=== PATIENT | female | born 1955 | race Caucasian/White ===

== ENCOUNTER 2016-08-01 12:11 | Emergency (ER) | payer BC ==
[~2016-08-01] VITALS: Ht 172.7 cm; Wt 97.7 kg
[2016-08-01 12:15] VITALS: BP 160/86; PULSE 60; RESP 20; TEMP 97.3; O2SAT 96
--- NOTE | 2016-08-01 12:21 | PD ---
Physical Exam Date Seen by Provider: Aug 01, 2016 Time Seen by Provider: 12:17 Narrative 60Y/O female here for sudden onset bleeding from left medial ankle this morning while at [place] having breakfast. Patient has Hx swelling and Varicose veins to the area. No specific injury. No anticoagulants. No reports of pain. Hx of HTN for which she take Losarten and Amlodipine. Bleeding currently controlled with dressing. V/S Stable. Patient awaiting Bed placement. Data Data Last Documented VS Vital Signs Date Time Temp Pulse Resp B/P Pulse Ox O2 Delivery O2 Flow Rate FiO2 08/01/16 12:15 97.3 60 20 160/86 96 Room Air [facility] Medical Record Reviewed: Yes Supervised Visit with NILESH: Yes Condition: Stable Shahab Augustine Aug 01, 2016 12:21
[2016-08-01] MEDS ORDERED: SYNT112T PO (12:31)
[2016-08-01] MEDS ORDERED: AMLO5TAB2 PO (12:31)
[2016-08-01] MEDS ORDERED: LOSA50TA PO (12:31)
[2016-08-01] MEDS ORDERED: TETANUS/DIPHTHERIA TOXOID ADULT 0.5 ML VIAL IM ONE (12:45)
[2016-08-01] MEDS ORDERED: LIDOCAINE 1%/EPINEPHrine 1:100,000 SOLN 20 ML VIAL INFIL ONE (12:45)
--- NOTE | 2016-08-01 12:45 | PD ---
HPI Chief Complaint: Laceration/Skin Injury Time Seen by Provider: 12:44 Travel History International Travel<30 days: No Contact w/Intl Traveler<30days: No Traveled to known affect area: No History of Present Illness HPI 60-year-old female presents to the emergency Department with complaint of a bleeding varicose vein to her left lower extremity to the medial ankle area. She has history of varicose veins and follows up with a vascular doctor back home. She is here on vacation. She was standing in the [place] to get lunch and someone told her she was standing in a puddle of blood. Denies injury. Has applied pressure to the varicose vein to try to control bleeding. Bandages in place. No known allergies. Denies anticoagulants. Has no other medical complaints. Denies pain. No other modifying factors or associated signs and symptoms. PFSH Past Medical History Cardiovascular Problems: Yes Hypertension: Yes Thyroid Disease: Yes Tetanus Vaccination: Unknown Influenza Vaccination: Yes Social History Alcohol Use: No Tobacco Use: No Substance Use: No Allergies-Medications (Allergen,Severity, Reaction): Coded Allergies: No Known Allergies (Unverified , 08/01/16) Reported Meds & Prescriptions Reported Meds & Active Scripts Active Reported Synthroid (Levothyroxine Sodium) Unknown Strength Tab Unknown Dose PO DAILY Losartan (Losartan Potassium) Unknown Strength Tab Unknown Dose PO DAILY Amlodipine (Amlodipine Besylate) Unknown Strength Tab Unknown Dose PO DAILY Review of Systems Except as stated in HPI: all other systems reviewed are Neg Physical Exam Narrative GENERAL: Well-nourished, well-developed female patient, in no acute distress SKIN: Warm and dry. Left medial ankle area with pinpoint area of bleeding varicose vein; area is without erythema, edema; with a large amount of bright red drainage. Left lower extremity supple and non-tense with 2+ pedal pulses and sensory intact. HEAD: Atraumatic. Normocephalic. EYES: Pupils equal and round. No scleral icterus. No injection or drainage. ENT: Mucosa pink and moist. Airway patent. NECK: Trachea midline. CARDIOVASCULAR: Regular rate. RESPIRATORY: No accessory muscle use. GASTROINTESTINAL: Obese. MUSCULOSKELETAL: No obvious deformities. No clubbing. No cyanosis. No edema. NEUROLOGICAL: Awake and alert. Oriented 3. No obvious cranial nerve deficits. Motor grossly within normal limits. Normal speech. PSYCHIATRIC: Appropriate mood and affect; insight and judgment normal. Data Data Last Documented VS Vital Signs Date Time Temp Pulse Resp B/P Pulse Ox O2 Delivery O2 Flow Rate FiO2 08/01/16 12:15 97.3 60 20 160/86 96 Room Air Orders Tetanus/Diphtheria Tox Adult (Tetanus/Di (08/01/16 12:45) Lidocai-Epi 1%-1:100,000 Inj (Xylocaine- (08/01/16 12:45) MDM Medical Decision Making Medical Screen Exam Complete: Yes Emergency Medical Condition: Yes Medical Record Reviewed: Yes Differential Diagnosis Bleeding varicose vein, puncture wound, medical clearance Narrative Course 60-year-old female with left lower medial ankle with a bleeding varicose vein. Patient has history of varicose veins and follows up with a vascular doctor back home. Denies injury. Tetanus updated in the ER. Pressure was applied and bleeding did stop, but started to rebleed easily. See my procedure note for puncture wound suturing. Instructed patient to follow up with vascular doctor when she gets back home and she verbalized understanding and agreement. Patient verbalizes understanding and agreement with treatment plan. Patient is medically cleared and stable for discharge. Discussed reasons to return to the emergency department. Instructed patient to follow up with primary care provider. Patient agrees with treatment plan. The patients vital signs are stable and the patient is stable for outpatient follow-up and treatment. Patient discharged home, stable and in no acute distress. Procedures Procedure Narrative Pinpoint puncture site to Bleeding varicose vein LOCATION: Left medial ankle LENGTH: Pinpoint NUMBER OF STITCHES/CAROL: 1 figure 8 Suture REPAIR: The area of the laceration was prepped with Betadine and sterilely draped. The laceration was infiltrated with 1% lidocaine with epinephrine. The wound was closed using 4-0 Ethilon. This was a single layer repair. A sterile dressing was applied. The patient was advised to keep the dressing clean and dry. Patient tolerated the procedure well. Diagnosis Primary Impression: Bleeding from varicose veins of lower extremity Qualified Code: I83.892 - Bleeding from varicose veins of lower extremity, left Referrals: Primary Care Physician Vascular Surgeon Patient Instructions: General Instructions, Varicose Veins (ED) Additional Instructions: Keep area clean and dry Ice pack to area as needed to decrease pain and inflammation Warm compresses to the affected area if the hematoma develops Return to the emergency department or follow-up with your primary care provider in 7-10 days for suture removal Follow-up with primary care provider Follow-up with vascular Julian. Return to the emergency department immediately with worsening of symptoms Med/Other Pt SpecificInfo: No Meds Exist/No RX given Disposition: 01 DISCHARGE HOME Condition: Stable Sarah Beth Dahl Aug 01, 2016 12:44
== END 2016-08-01 13:17 | disposition home or self-care (01) ==
LOC: NEPK 12:11
DX: I83.892 Varicose veins of left lower extremity with other complications (principal); Z23 Encounter for immunization; I10 Essential (primary) hypertension; E07.9 Disorder of thyroid, unspecified
CPT/HCPCS: 12001; 90471; 90714